=== PATIENT | male | born 2000 | race African-American/Black ===

== ENCOUNTER 2022-08-26 18:15 | Emergency (ER) | payer OTHER ==
[~2022-08-26] VITALS: Ht 182.9 cm; Wt 120.5 kg
[2022-08-26 18:17] VITALS: BP 138/97
[2022-08-26] MEDS ORDERED: BACITRACIN 15GM TUBE TOP ONE (18:30)
[2022-08-26] MEDS ORDERED: TETANUS, DIPHTHERIA, PERTUSSIS VAC/PF 0.5ML (>10YR OLD) IM ONE (18:30)
[2022-08-26] MEDS ORDERED: ACETAMINOPHEN 325MG TABLET PO ONE (18:30)
== END 2022-08-26 18:55 ==
LOC: ER 18:15
DX: S50.812A Abrasion of left forearm, initial encounter (principal); V49.49XA Driver injured in collision with other motor vehicles in traffic accident, initial encounter; Y93.89 Activity, other specified; Y92.89 Other specified places as the place of occurrence of the external cause; Y99.8 Other external cause status; J45.909 Unspecified asthma, uncomplicated; I10 Essential (primary) hypertension
CPT/HCPCS: 99283